=== PATIENT | female | born 1995 | race Asian ===

== ENCOUNTER 2019-03-13 07:07 | Emergency (ER) | payer OTHER ==
--- NOTE | 2019-03-13 07:17 | UC ---
Bite Injury/Animal HPI - HPI Summary HPI Summary: Per RN notes - woke up and found bat in room 03/09 - had initial rabies RHIG and first vaccine done at [facility], here for rabies vaccine day 3 No fever / chills. No sob / cp / palpitations. no GI issues. No rash. - History of Current Complaint Stated Complaint: RABIES POST EXPOSURE Time Seen by Provider: 03/13/19 07:12 Hx Obtained From: Patient - Allergies/Home Medications Allergies/Adverse Reactions: Allergies Allergy/AdvReac Type Severity Reaction Status Date / Time No Known Allergies Allergy Verified 03/13/19 07:33 Home Medications: Home Medications NK [No Home Medications Reported] 03/13/19 [History Confirmed 03/13/19] PMH/Surg Hx/FS Hx/Imm Hx Previously Healthy: Yes - Surgical History Surgical History: None - Family History Known Family History: Positive: None Review of Systems All Other Systems Reviewed And Are Negative: Yes Constitutional: Positive: Negative Skin: Positive: Negative Eyes: Positive: Negative ENT: Positive: Negative Respiratory: Positive: Negative Cardiovascular: Positive: Negative Gastrointestinal: Positive: Negative Genitourinary: Positive: Negative Motor: Positive: Negative Neurovascular: Positive: Negative Musculoskeletal: Positive: Negative Neurological: Positive: Negative Psychological: Positive: Negative Is Patient Immunocompromised?: No Physical Exam Triage Information Reviewed: Yes Appearance: Well-Appearing, Well-Nourished Vital Signs Reviewed: Yes Eye Exam: Normal ENT Exam: Normal Neck exam: Normal Respiratory Exam: Normal Cardiovascular Exam: Normal Abdominal Exam: Normal Abdomen Description: Positive: No Organomegaly Musculoskeletal Exam: Normal Neurological Exam: Normal Psychological Exam: Normal Skin Exam: Normal Bite Injury Course/Dx - Course Course Of Treatment: Rabies vaccine (#3) Questions as posed answered to the best of my ability F/u per Health Dept fu PCP, per routine. Note - in [facility], there is no listing for "possible rabies exposure", as such , closest pertinent dx is as below "Rabies exposure." - Differential Dx/Diagnosis Provider Diagnosis: Contact with or exposure to rabies Discharge - Sign-Out/Discharge Documenting (check all that apply): Patient Departure All imaging exams completed and their final reports reviewed: No Studies - Discharge Plan Condition: Stable Disposition: HOME Patient Education Materials: Rabies Vaccine (By injection) Referrals: No Primary Care Phys,NOPCP [Primary Care Provider] - [facility] [Outside] Additional Instructions: Follow up per the Health Department for the remainder of the series. Go to the Emergency Department for any worse or new problems. - Billing Disposition and Condition Condition: STABLE Disposition: Home
[2019-03-13] MEDS ORDERED: Rabies VIRUS VACCINE (Imovax)* 2.5 UNIT/ML 1 ML IM ONE (07:18)
[2019-03-13 07:33] VITALS: BP 107/72
== END 2019-03-13 07:56 | disposition home or self-care (01) ==
LOC: UCEAST 07:07
DX: Z20.3 Contact with and (suspected) exposure to rabies (principal)
CPT/HCPCS: 90471; 99201; G0463